=== PATIENT | male | born 1980 | race Caucasian/White ===

== ENCOUNTER 2017-06-06 08:35 | Emergency (ER) | payer BC ==
[~2017-06-06] VITALS: Ht 180.3 cm; Wt 77.1 kg
[2017-06-06 08:35] VITALS: BP 131/76
[~2017-06-06 08:35] MED LIST: CYCL-331 PO; HYDR-2758 PO; NAPR-677 PO
[2017-06-06] MEDS ORDERED: NAPR500T PO (09:14)
[2017-06-06] MEDS ORDERED: ACET-704 PO (09:14)
[2017-06-06] MEDS ORDERED: CYCL-331 PO (09:14)
--- NOTE | 2017-06-06 09:22 | PHYS DOC ---
General Chief Complaint: UPPER EXTREMITY PAIN Stated Complaint: ARM PAIN Time Seen by MD: 09:00 Source: patient Exam Limitations: no limitations Problems: History of Present Illness Initial Comments Patient is a 36-year-old male who comes to the ED complaining of left arm pain. Patient states that he has left upper and lower arm muscular pain, states he lifts heavy items at work and has been doing a lot of work around the house as well. He denies any other trauma he denies numbness tingling weakness or radiating symptoms. He states the pain is so great he cannot go to work but denies work comp circumstances. He has full range of motion states the pain is moderate with activity and that he would like a work note. He has no bony pain and no pain located within the joints. Onset: yesterday Severity: moderate Pain/Injury Location: left arm, left forearm Method of Injury: unknown Modifying Factors: worse with jarring, worse with movement, improves with rest Allergies: Coded Allergies: No Known Drug Allergies (Unverified , 03/29/14) Past Medical History Medical History: no pertinent history Surgical History: noncontributory Social History Smoker: cigarettes Alcohol: none Drugs: none Review of Systems Constitutional: denies chills, denies diaphoresis, denies fever Respiratory: denies cough, denies shortness of breath Cardiovascular: denies chest pain, denies palpitations Gastrointestinal: denies nausea, denies vomiting Musculoskeletal: see HPI Psychiatric/Neurological: denies numbness, denies paresthesia, denies pre- existing deficit, denies tingling, denies weakness Physical Exam General Appearance: WD/WN, no apparent distress Neck: non-tender, supple Cardiovascular/Respiratory: normal peripheral pulses, no respiratory distress Back: no CVA tenderness, no vertebral tenderness Shoulder: normal inspection, non-tender, no evidence of injury Elbow/Forearm: no evidence of injury (left brachial radialis and brachialis muscle tenderness there is no hypertonicity swelling or palpable subcutaneous mass. There is no bruising or palpable defect consistent with muscle tear. No bony symptoms no pain with active or passive range of motion noted within the joint.), normal ROM Wrist: normal inspection, non-tender, no evidence of injury Neurologic/Tendon: normal sensation, normal motor functions, normal tendon functions, responds to pain, no evidence tendon injury Psychiatric: alert, oriented x 3 Skin: normal color, warm/dry Orders, Labs, Meds No evidence of blood clot and no risk factors. No bony or joint involvement so the patient does agree imaging would be of no benefit. He is satisfied with a work note and would also like a sling, is neurovascularly intact after the sling is placed. He was advised to stop smoking he expressed agreement and understanding with the treatment plan. Departure Time of Disposition: 09:19 Disposition: 01 HOME, SELF-CARE Diagnosis: LUE muscle strain Condition: GOOD Patient Instructions: Muscle Strain, [id number] Additional Instructions: Off work thru Saturday, note given. Wear left arm sling as needed. OTC ibuprofen for baseline pain. Rx: cyclobenzaprine, naprosyn, Tylenol #3 (10) Take meds with food. Heating pad 20 minutes 4-5 times daily followed by gentle stretching. Follow up with a doctor Saturday if no improvement. Return to ED with new or changing symptoms. TIANNA GREGORY DO Jun 06, 2017 09:22
== END 2017-06-06 09:25 | disposition home or self-care (01) ==
LOC: ER 08:35
DX: S46.812A Strain of other muscles, fascia and tendons at shoulder and upper arm level, left arm, initial encounter (principal); F17.210 Nicotine dependence, cigarettes, uncomplicated; X58.XXXA Exposure to other specified factors, initial encounter; Y93.89 Activity, other specified; Y99.8 Other external cause status; Y92.89 Other specified places as the place of occurrence of the external cause
CPT/HCPCS: 99283